=== PATIENT | female | born 1960 | race African-American/Black ===

== ENCOUNTER 2025-03-06 20:13 | Emergency (ER) | payer MEDICARE, SELFPAY ==
[2025-03-06 20:24] VITALS: BP 138/88
[2025-03-06 22:44] VITALS: BMI 33.2
[2025-03-06 23:00] VITALS: BP 131/90
[2025-03-07] VITALS: BP 139/88
[2025-03-07 01:33] VITALS: BP 127/84
--- NOTE | 2025-03-07 01:47 | ED.GENMED ---
History of Present Illness
General
Chief Complaint: Extremity Pain (non-traumatic)
Source: patient
Exam Limitations: none
Time Seen by Provider: 03/06/25 23:27
History of Present Illness
History of Present Illness:
64-year-old female with months of right arm pain. Rating to the hand. No weakness. No bowel or bladder issues. No chest pain shortness of breath or other complaints. Pain is nonexertional. No increased pain with movement. Pain has been
continuous for months.
Past History
Past History
ED Past Medical History: HTN and Hypercholesterolemia
ED Past Surgical History: Gynecological and Urological
Review of Systems
Review of Systems
All Other Systems: Not applicable
Constitutional: Denies fever or chills
Respiratory: Reports no symptoms
Cardiac: Reports no symptoms
Phy Exam
Physical Exam
Physical Exam:
GENERAL: Alert and oriented in no apparent distress
EYE: Orbits normal.
NECK: Supple, no significant adenopathy.
ENT: Pharynx without erythema
CARDIAC: Regular rate and rhythm without any obvious murmurs.
LUNGS: Clear breath sounds,normal
ABDOMEN: Soft, without focal tenderness or distention
NEUROLOGICAL: Alert and oriented , grossly non-focal. Good strength to the right arm. Interosseous intact. [employer] normal. Plantar dorsiflexion of the wrist normal.
SKIN: Warm and dry, no rash or lesion, no discoloration, skin intact.
MUSCULOSKELETAL: No edema,no deformity.Good color. No arm swelling. Good distal pulses and color. Good capillary refill. No pain with arm motion.
PSYCH: Normal and appropriate interaction.
Course
Orders/Labs/Results
Orders:
Orders
03/07/25 00:08
CT Cervical Spine W/o Iv Contr Urgent
Comment:
Reason For Exam: Right arm radiculopathy
Vital Signs
Initial and Last Documented VS:
Initial Vital Signs
Temp Pulse Resp BP Pulse Ox
98.2 F 85 16 138/88 98
03/06/25 20:24 03/06/25 20:24 03/06/25 20:24 03/06/25 20:24 03/06/25 20:24
Last Documented Vital Signs
Temp Pulse Resp BP Pulse Ox
98.2 F 85 16 127/84 98
03/06/25 20:24 03/06/25 20:24 03/06/25 20:24 03/07/25 01:33 03/07/25 01:45
MDM/Problems Addressed
Differential Diagnosis Includes:
Patient with continuous symptoms for months. This is not behaving as a cardiac issue. Clinically very suspicious for radiculopathy. CT scan shows significant degenerative changes no acute treatment needed but warrants spine follow-up
*Radiology
Radiology exam reviewed: radiology read reviewed (Degenerative changes C5-C6 C6-C7. Moderate spinal stenosis)
*Critical Care Note
Total Time (30-74mins, 75-104mins- exclusive of procedures): Not Applicable
Update Note
Update Note:
Again continue with symptoms for months. No change in symptoms just not improving. Benign neurologic exam. Orthopedic follow-up
Patient given copy of report
ED Attending Note
-
Portions of this chart may have been created with voice recognition software.� Occasional wrong word or��sound alike� substitutions may have occurred due to the inherent limitations of voice recognition software.
Discharge Plan
Departure
Patient Disposition: Home (Routine Discharge)
Date of Disposition: 03/07/25
Time of Disposition: 01:51
Patient with high blood pressure during this ER visit?: Yes
Discharge Problem:
Right arm radiculopathy, Moderate spinal stenosis
Instructions: Radiculopathy of the neck and back (including sciatica) - Discharge instructions, BLOOD PRESSURE
Prescriptions:
No Action
Aspirin
81 mg PO DAILY
lisinopril 20 MG tablet
20 mg PO HS
pravastatin 10 MG tablet
10 mg PO HS
yyhwivpf-txy-SP-lycopen-lutein [Centrum Silver] 1 EACH tablet
1 tab PO DAILY
Pepcid:
1 tab PO PRN PRN (Reason: reflux)
Vitamin D
800 int.units PO DAILY
oxycodone-acetaminophen 5 MG/325 MG tablet
1 - 2 tab PO Q3HPRN PRN (Reason: moderate pain) Qty: 30 0RF
meclizine 25 MG tablet
1 tab PO PRN PRN (Reason: vertigo)
Referrals:
Wendy Saldana MD [Family Provider] - Follow up in 2-3 days
Godfrey Taylor MD [Active] - Follow up in 2-3 days
Activity Restrictions/Additional Instructions:
I gave you the name of the orthopedist on-call for the ER. When you call their group I recommend seeing one of their spine specialists
Interventions
Interventions:
*Risk Screen - Suicide Last Done: 03/06/25 20:27
*General Assessment Last Done: 03/06/25 22:45
*Neglect/Abuse Screening Last Done: 03/06/25 20:27
*ED- Fall Risk Assessment Last Done: 03/06/25 22:45
*ED COVID-19 Vaccine History Last Done: 03/06/25 22:45
*Nursing Disposition Last Done: 03/07/25 02:03
ED-Skin Assessment Last Done: 03/06/25 22:45
ED-Peripheral Vascular Assessment Last Done: 03/06/25 22:45
ED-Musculoskeletal Assessment Last Done: 03/06/25 22:45
Discharge Date and Time
Discharge Date/Time: 03/07/25 02:03
Print Language: GERMAN
== END 2025-03-07 02:03 | disposition home or self-care (01) ==
LOC: EMR 20:13
PROVIDERS: EMERGENCY PHYSICIAN Emergency Medicine; FAMILY PHYSICIAN Internal Medicine
DX: M54.12 Radiculopathy, cervical region (principal); M48.02 Spinal stenosis, cervical region; I10 Essential (primary) hypertension; E78.00 Pure hypercholesterolemia, unspecified
CPT/HCPCS: 99284; 72125

== ENCOUNTER 2025-08-22 20:27 | Emergency (ER) | payer SELFPAY ==
[2025-08-22 20:31] VITALS: BP 149/106
[2025-08-22 23:24] VITALS: BP 145/91
[2025-08-23] VITALS: BP 145/92
--- NOTE | 2025-08-23 | ED.GENMED ---
History of Present Illness
General
Chief Complaint: Headache
Source: patient
Exam Limitations: none
Time Seen by Provider: 08/22/25 23:57
Nursing documentation reviewed up to this point in time: agreed with
History of Present Illness
History of Present Illness:
Note:
CHIEF COMPLAINT(S)
Headache
HISTORY OF PRESENT ILLNESS
The patient is a 64-year-old female with a history of a intracranial aneurysm diagnosed a few years ago, asthma, GERD, anemia, presenting with a headache for the past few days. Contrary to the triage note, the headache hsas been going on multiple
days but has been steadily improving. The patient describes the headache as being located at the top and back of the head. There is no accompanying vomiting or visual changes, but the headache is associated with mild nausea. The severity of the
headache is concerning to the patient due to her history of aneurysm, despite it not being the worst headache she has experienced. No numbness or tingling has been reported. Additionally, the patient reports knee pain and swelling that has been
going on for a while.
The patient has been using acetaminophen for relief, as she is unable to take other medications. The headache is easing slightly with acetaminophen. She has previously not had antiemetics administered intravenously for nausea. There is no follow-up
with a neurologist at present; however, she expresses the need for potential consultation.
She denies dizziness and lightheadedness, double vision, lightheadedness, loss of consciousness, chest pain.
PHYSICAL EXAM
- General: Alert, in no acute distress.
- Skin: Warm, dry.
- Head: Normocephalic, atraumatic.
- Neck: Supple, trachea midline.
- Eyes, Ears, Nose, Mouth and Throat: Oral mucosa moist.
- Cardiovascular: Normal peripheral perfusion, No edema.
- Respiratory: Respirations are non-labored.
- Gastrointestinal: Abdomen nondistended.
- Back: Normal range of motion, Normal alignment.
- Musculoskeletal: Normal range of motion, normal strength.
- Neurological: Alert and oriented to person, place, time, and situation, No focal neurological deficit observed. Normal finger to nose, heel to segura testing.
- Psychiatric: Cooperative, appropriate mood & affect.
PLAN
1. Administer intravenous reglan for nausea and as a measure to alleviate headache symptoms.
2. Perform a CT scan to assess the status of the known aneurysm.
3. Consider referral to a neurologist for further management of headaches and aneurysm monitoring.
DIFFERENTIAL DIAGNOSIS
The Differential Diagnosis includes, in no particular order and is not limited to:
1. Tension headache
2. Migraine
3. Aneurysm-related headache
4. Hypertension-related headache
5. Sinus headache
6. Cluster headache
7. Temporal arteritis
8. Dehydration headache
9. Medication overuse headache
10. Cervicogenic headache
CHART REVIEW
Reviewed ER physician recommendation from 03/07/2025 patient seen for right arm pain likely secondary to radiculopathy
No discharge summaries to [facility] to review
MDM
64-year-old female with past medical history of GERD, hypertension, hyperlipidemia, who presents to the ER today with concerns of headache. She reportedly has a history of a intracranial aneurysm that was diagnosed on MRI a few years ago. She has
no associated symptoms, no focal neurologic deficits on exam. Pain is improving Tylenol did improve symptoms and with Reglan, she states that she does not really notice the pain anymore. She went for CTA which showed no evidence of aneurysm no
evidence of subarachnoid hemorrhage. Suspect perhaps smaller aneurysm that was diagnosed on MRI does not visible currently on CT scan. Suspect tension headache. Patient stable for discharge. Patient states that she does have a primary care
provider that she does follow-up with. Discussed tricked return precautions. Patient stable for discharge.
Past History
Past History
ED Past Medical History: HTN and Hypercholesterolemia
ED Past Surgical History: Gynecological and Urological
Review of Systems
Review of Systems
All Other Systems: ROS reviewed and negative except as documented in HPI and ROS
Phy Exam
Physical Exam
Physical Exam:
see hpi
Course
Orders/Labs/Results
Orders:
Orders
08/23/25 00:12
CT Head & Neck Angio W/wo IV Urgent
Reason For Exam: headache, hx of aneursym
0.9% Sodium Chloride 250 ml [Nss] 250 ml IV BOLUS
Diphenhydramine [Benadryl] 12.5 mg IV NOW STA
Metoclopramide [Reglan] 10 mg IV NOW STA
08/23/25 00:25
Complete Blood Count/With Diff Urgent
Comprehensive Metabolic Panel Urgent
Abnormal Lab Results
08/23/25
00:25
RBC 3.76 L 10^6/uL
(4.20-5.40)
Hgb 11.3 L g/dL
(12.0-16.0)
Hct 34.4 L %
(37.0-47.0)
MCHC 32.8 L g/dL
(33.0-37.0)
Absolute Lymphs (auto) 3.5 H 10^3/uL
(1.2-3.4)
Absolute Monos (auto) 0.9 H 10^3/uL
(0.1-0.6)
Chloride 108 H mmol/L
(98-107)
08/23/25 00:25
08/23/25 00:25
Vital Signs
Initial and Last Documented VS:
Initial Vital Signs
Temp Pulse Resp BP Pulse Ox
98.2 F 84 16 149/106 100
08/22/25 20:31 08/22/25 20:08/22/25 20:08/22/25 20:31 08/22/25 20:31
Last Documented Vital Signs
Temp Pulse Resp BP Pulse Ox
98.2 F 80 15 125/75 98
08/22/25 20:08/23/25 03:00 08/23/25 03:00 08/23/25 03:00 08/23/25 03:00
*Pulse Oximetry
SaO2: 100
Oxygen Mode of Delivery: Room air
Patient hypoxic: no
*Critical Care Note
Total Time (30-74mins, 75-104mins- exclusive of procedures): Not Applicable
ED Attending Note
-
Portions of this chart may have been created with voice recognition software.� Occasional wrong word or��sound alike� substitutions may have occurred due to the inherent limitations of voice recognition software.
Discharge Plan
Departure
Patient Disposition: Home (Routine Discharge)
Date of Disposition: 08/23/25
Time of Disposition: 02:50
Patient with high blood pressure during this ER visit?: Yes
Condition: Good
Discharge Problem:
Headache
Instructions: Headache, Adult (DC), BLOOD PRESSURE
Prescriptions:
No Action
Aspirin
81 mg PO DAILY
lisinopril 20 MG tablet
20 mg PO HS
pravastatin 10 MG tablet
10 mg PO HS
vcoygaki-zny-GV-lycopen-lutein [Centrum Silver] 1 EACH tablet
1 tab PO DAILY
Pepcid:
1 tab PO PRN PRN (Reason: reflux)
Vitamin D
800 int.units PO DAILY
oxycodone-acetaminophen 5 MG/325 MG tablet
1 - 2 tab PO Q3HPRN PRN (Reason: moderate pain) Qty: 30 0RF
meclizine 25 MG tablet
1 tab PO PRN PRN (Reason: vertigo)
Referrals:
UNKNOWN - PT DOES,NOT KNOW [Family Provider]
Activity Restrictions/Additional Instructions:
As discussed, your CAT scan showed no evidence of aneurysm. I recommend following up with your primary care provider.
If PLEASE RETURN TO THE ER SHOULD YOU DEVELOP RETURN OF YOUR SYMPTOMS, VISUAL CHANGES, BLURRY VISION, ANY, DIZZINESS, LIGHTHEADEDNESS, LOSS OF CONSCIOUSNESS, CHEST PAIN, SHORTNESS OF BREATH, TROUBLE SWALLOWING OR BLURRY VISION FACIAL DROOP,
WEAKNESS, SPEECH DIFFICULTIES, OR ANY OTHER SYMPTOMS CONCERNING TO YOU.
Interventions
Interventions:
*Risk Screen - Suicide Last Done: 08/22/25 20:31
*General Assessment Last Done: 08/22/25 23:27
*Neglect/Abuse Screening Last Done: 08/22/25 20:31
*ED- Fall Risk Assessment Last Done: 08/22/25 23:25
*ED COVID-19 Vaccine History Last Done: 08/22/25 23:25
*Nursing Disposition Last Done: 08/23/25 03:51
ED- Neurological Assessment Last Done: 08/23/25 02:17
Discharge Date and Time
Discharge Date/Time: 08/23/25 03:51
Print Language: YI
[2025-08-23] MEDS: BENADRYL 12.5 MG IV (00:28)
[2025-08-23] MEDS: REGLAN 10 MG IV (00:28)
[2025-08-23] MEDS: NSS 250 IV (00:29)
[2025-08-23 00:35] LABS: Hematocrit 34.4 % (37.0-47.0); Hemoglobin 11.3 g/dL (12.0-16.0); Mean Corp Hgb Conc. 32.8 g/dL (33.0-37.0); Mean Corpuscular Volume 91.5 fL (81.0-99.0); Nucleated Red Blood Cells % 0 %; Platelet Count 326 10^3/uL (130-400); Red Cell Dist. Width 13.5 % (11.5-14.5)
[2025-08-23 00:53] LABS: ALT (SGPT) 18 U/L (0-35); AST (SGOT) 21 U/L (14-36); Albumin 4.2 g/dl (3.5-5.0); Alkaline Phosphatase 87 U/L (38-126); Blood Urea Nitrogen 16 mg/dl (7-17); Calcium 9.9 mg/dl (8.4-10.2); Carbon Dioxide 26 mmol/L (22-30); Chloride 108 mmol/L (98-107); Glucose 92 mg/dl (70-99); Potassium 3.9 mmol/L (3.5-5.1); Sodium 140 mmol/L (135-145); Total Protein 7.2 g/dl (6.3-8.2); eGFR > 60.00
[2025-08-23 01:00] VITALS: BP 114/68
[2025-08-23 02:11] VITALS: BP 133/97
[2025-08-23 03:00] VITALS: BP 125/75
--- NOTE | 2025-08-23 03:35 | EDRN ---
Pt currently has no one to pick her up, pt to waiting room and will try reaching out to people later in the morning, [facility] nurse aware. Informed pt of [employer] bus schedule to ask [employer] for assistance in am. Also given train schedule, directions and
address but does not have money for train. (am soonest pickup for [employer]ART
== END 2025-08-23 03:51 | disposition home or self-care (01) ==
LOC: EMR 20:27
PROVIDERS: Physician Assistant; EMERGENCY PHYSICIAN Emergency Medicine
DX: R51.9 Headache, unspecified (principal); E78.00 Pure hypercholesterolemia, unspecified; I10 Essential (primary) hypertension; Z86.79 Personal history of other diseases of the circulatory system
CPT/HCPCS: 96374; 96375; 99284; 70496; 70498; 80053; 85025; Q9967